=== PATIENT | male | born 1985 | race Caucasian/White ===

== ENCOUNTER 2017-12-06 20:38 | Emergency (ER) | payer MEDICAID ==
[~2017-12-06] VITALS: Ht 180.3 cm; Wt 81.8 kg
[2017-12-06] MEDS ORDERED: ondansetron 4mg rapidly disintigrating tab PO ONE (21:50)
[2017-12-06] MEDS ORDERED: diphenhydrAMINE 50 mg/ml inj IV ONE (21:55)
[2017-12-06] MEDS ORDERED: metoclopramide 5 mg/ml inj IV ONE (21:55)
[2017-12-06] MEDS ORDERED: normal saline 1000ML IV soln IVB ONE ×2 (21:55)
[2017-12-06] MEDS ORDERED: glycopyrrolate 0.2mg/ml inj IV ONE (21:55)
[2017-12-06 22:33] VITALS: BP 112/59
[2017-12-06 22:33] LABS: BASOPHILS % (AUTO) 0 % (0-1); EOSINOPHILS % (AUTO) 0 % (0-6); HEMOGLOBIN 16.5 g/dl (14.0-17.9); LYMPHOCYTES # (AUTO) 0.5 X10'3 (1.1-4.8); LYMPHOCYTES % (AUTO) 3.3 % (21-51); MEAN CORPUSCULAR HEMOGLOBIN 30.4 PG (27.0-31.0); MEAN CORPUSCULAR HGB CONC 34.3 % (33.0-36.5); MEAN CORPUSCULAR VOLUME 88.7 FL (78-98); MEAN PLATELET VOLUME 8.2 FL (7.4-10.4); MONOCYTES # (AUTO) 0.5 X10'3 (0-0.9); MONOCYTES % (AUTO) 3.1 % (2-12); NEUTROPHILS % (AUTO) 93.6 % (42-75); PLATELET COUNT 342 X10'3 (140-440); RED BLOOD COUNT 5.41 X10'6 (4.70-6.10)
[2017-12-06 22:50] LABS: ALANINE AMINOTRANSFERASE 31 U/L (12-78); ALBUMIN 4.7 G/DL (3.4-5.0); ALBUMIN/GLOBULIN RATIO 1.3 (1.1-1.5); ALKALINE PHOSPHATASE 77 IU/L (46-116); ANION GAP 15 (8-16); ASPARTATE AMINO TRANSFERASE 20 U/L (10-37); BILIRUBIN,TOTAL 0.8 MG/DL (0.1-1.0); BLOOD UREA NITROGEN 19 MG/DL (7-18); BUN/CREATININE RATIO 14.2 (5.4-32.0); CALCIUM 9.3 MG/DL (8.5-10.1); CHLORIDE 101 MMOL/L (99-107); CREATININE 1.34 MG/DL (0.60-1.10); GLUCOSE 161 MG/DL (70-104); LIPASE 51 U/L (73-393); SODIUM 139 MMOL/L (135-145); TOTAL CARBON DIOXIDE 23.1 MMOL/L (24-32); TOTAL PROTEIN 8.3 G/DL (6.4-8.2); eGFR 63 ML/MIN
[2017-12-06 23:09] LABS: POTASSIUM 4.2 MMOL/L (3.5-5.1)
[2017-12-06] MEDS ORDERED: CefTRIAXone 2gm/D5W 50ml 50 ML IV ONE (23:45)
[2017-12-06] MEDS ORDERED: DICY10CA88 PO (23:55)
[2017-12-06] MEDS ORDERED: SULF1TAB49 PO (23:55)
[2017-12-06] MEDS ORDERED: ONDA4TAB12 PO (23:55)
== END 2017-12-07 00:49 | disposition home or self-care (01) ==
LOC: ER 20:39
DX: R11.2 Nausea with vomiting, unspecified (principal); R19.7 Diarrhea, unspecified; Z88.8 Allergy status to other drugs, medicaments and biological substances; Z79.899 Other long term (current) drug therapy
CPT/HCPCS: 36415; 80053; 83690; 85025; 96361; 96365; 96375; 99284; J0696; J1200; J2765; J3490; J7030

== ENCOUNTER 2018-03-15 15:00 | Emergency (ER) | payer MEDICAID ==
[~2018-03-15] VITALS: Ht 180.3 cm; Wt 81.2 kg
[~2018-03-15 15:00] MED LIST: ONDA4TAB12 PO
[2018-03-15] MEDS ORDERED: LORazepam 2 mg/ml vial IV ONE (15:15)
[2018-03-15] MEDS ORDERED: ondansetron/PF 4mg/2ml inj IV ONE (15:15)
[2018-03-15] MEDS ORDERED: normal saline 1000ML IV soln IVB ONE (15:15)
[2018-03-15 15:27] LABS: BASOPHILS % (AUTO) 0 % (0-1); EOSINOPHILS % (AUTO) 0 % (0-6); HEMATOCRIT 48.3 % (42.0-52.0); HEMOGLOBIN 16.2 g/dl (14.0-17.9); LYMPHOCYTES # (AUTO) 1.2 X10'3 (1.1-4.8); LYMPHOCYTES % (AUTO) 7.7 % (21-51); MEAN CORPUSCULAR HEMOGLOBIN 29.8 PG (27.0-31.0); MEAN CORPUSCULAR HGB CONC 33.6 % (33.0-36.5); MEAN CORPUSCULAR VOLUME 88.8 FL (78-98); MEAN PLATELET VOLUME 7.7 FL (7.4-10.4); MONOCYTES # (AUTO) 0.3 X10'3 (0-0.9); MONOCYTES % (AUTO) 2.3 % (2-12); NEUTROPHILS # (AUTO) 13.8 X10'3 (1.8-7.7); PLATELET COUNT 376 X10'3 (140-440); RED BLOOD COUNT 5.44 X10'6 (4.70-6.10); RED CELL DISTRIBUTION WIDTH 14.2 % (11.5-14.5); WHITE BLOOD COUNT 15.3 X10'3 (4.5-11.0)
[2018-03-15 15:36] LABS: PROTHROMBIN TIME 10.5 SECONDS (9.0-12.0)
[2018-03-15 15:41] LABS: ALANINE AMINOTRANSFERASE 32 U/L (12-78); ALBUMIN/GLOBULIN RATIO 1.5 (1.1-1.5); ALKALINE PHOSPHATASE 86 IU/L (46-116); AMYLASE 64 U/L (25-115); ANION GAP 14 (8-16); ASPARTATE AMINO TRANSFERASE 14 U/L (10-37); BILIRUBIN,TOTAL 0.6 MG/DL (0.1-1.0); BLOOD UREA NITROGEN 11 MG/DL (7-18); BUN/CREATININE RATIO 7.6 (5.4-32.0); CHLORIDE 105 MMOL/L (99-107); CREATININE 1.45 MG/DL (0.60-1.10); GLUCOSE 180 MG/DL (70-104); LIPASE 107 U/L (73-393); POTASSIUM 3.9 MMOL/L (3.5-5.1); SODIUM 142 MMOL/L (135-145); TOTAL CARBON DIOXIDE 23.3 MMOL/L (24-32); TOTAL PROTEIN 8.4 G/DL (6.4-8.2); eGFR 57 ML/MIN
[2018-03-15 15:42] LABS: ETHANOL < 0.010 GM/DL (0.0-0.010)
[2018-03-15] MEDS ORDERED: haloperidol lactate 5mg/ml inj IM ONE (15:55)
[2018-03-15 16:42] LABS: CLARITY,URINE CLEAR (Clear); COLOR,URINE YELLOW (Yellow); GLUCOSE, URINE 100 mg/dl (Neg); KETONES,URINE 15 mg/dl (Neg); LEUKOCYTE ESTERASE ,URINE NEGATIVE (Neg); NITRITES, URINE NEGATIVE (Neg); OCCULT BLOOD,URINE NEGATIVE (Neg); PH,URINE 8.5 (4.8-8.0); PROTEIN,URINE NEGATIVE (Neg); UROBILINOGEN,URINE 0.2 E.U/dL (0.2-1.0)
[2018-03-15 16:48] LABS: URINE AMPHETAMINE SCREEN NEGATIVE (Neg); URINE BARBITUATE SCREEN NEGATIVE (Neg); URINE BENZODIAZEPINES SCREEN NEGATIVE (Neg); URINE CANNABINOID SCREEN POSITIVE (Neg); URINE COCAINE SCREEN NEGATIVE (Neg); URINE METHADONE SCREEN NEGATIVE (Neg); URINE OPIATE SCREEN NEGATIVE (Neg); URINE PHENCYCLIDINE SCREEN NEGATIVE (Neg)
[2018-03-15 16:53] LABS: UA COLLECTION TYPE CLN CATCH MIDSTREAM
[2018-03-15 18:18] VITALS: BP 146/75
[2018-03-16] MEDS ORDERED: ONDA4TAB9 SL (19:26)
[2018-03-16] MEDS ORDERED: POTA20TA19 PO (19:26)
[2018-03-17] MEDS ORDERED: PHE12.5T PO (14:06)
== END 2018-03-15 18:20 | disposition home or self-care (01) ==
LOC: ER 15:00
DX: G43.A0 Cyclical vomiting, in migraine, not intractable (principal); F12.10 Cannabis abuse, uncomplicated; R19.7 Diarrhea, unspecified; R10.33 Periumbilical pain; Z79.899 Other long term (current) drug therapy; Z88.1 Allergy status to other antibiotic agents
CPT/HCPCS: 36415; 74176; 80053; 80305; 80320; 81003; 82150; 83690; 85025; 85610; 96361; 96372; 96374; 96375; 99285; J1630; J2060; J2405; J7030

== ENCOUNTER 2018-03-16 08:54 | Emergency (ER) | payer MEDICAID ==
[~2018-03-16] VITALS: Ht 180.3 cm; Wt 79.5 kg
[2018-03-16] MEDS ORDERED: haloperidol lactate 5mg/ml inj IM ONE (09:15)
[2018-03-16] MEDS ORDERED: ondansetron/PF 4mg/2ml inj IV ONE (09:15)
[2018-03-16] MEDS ORDERED: normal saline 1000ML IV soln IVB ONE (09:15)
[2018-03-16] MEDS ORDERED: diphenhydrAMINE 50 mg/ml inj IV ONE (09:15)
[2018-03-16 09:36] LABS: BASOPHILS # (AUTO) 0.1 X10'3 (0-0.2); BASOPHILS % (AUTO) 0.5 % (0-1); EOSINOPHILS % (AUTO) 0.1 % (0-6); HEMATOCRIT 43.9 % (42.0-52.0); HEMOGLOBIN 14.7 g/dl (14.0-17.9); LYMPHOCYTES # (AUTO) 2.4 X10'3 (1.1-4.8); LYMPHOCYTES % (AUTO) 15.1 % (21-51); MEAN CORPUSCULAR HEMOGLOBIN 29.9 PG (27.0-31.0); MEAN CORPUSCULAR HGB CONC 33.6 % (33.0-36.5); MEAN PLATELET VOLUME 8.2 FL (7.4-10.4); MONOCYTES # (AUTO) 1.1 X10'3 (0-0.9); NEUTROPHILS # (AUTO) 12.4 X10'3 (1.8-7.7); NEUTROPHILS % (AUTO) 77.3 % (42-75); PLATELET COUNT 334 X10'3 (140-440); RED BLOOD COUNT 4.93 X10'6 (4.70-6.10); RED CELL DISTRIBUTION WIDTH 13.3 % (11.5-14.5)
[2018-03-16 09:56] LABS: ALANINE AMINOTRANSFERASE 28 U/L (12-78); ALBUMIN 4.3 G/DL (3.4-5.0); ALBUMIN/GLOBULIN RATIO 1.3 (1.1-1.5); ALKALINE PHOSPHATASE 73 IU/L (46-116); ANION GAP 15 (8-16); ASPARTATE AMINO TRANSFERASE 27 U/L (10-37); BILIRUBIN,TOTAL 0.8 MG/DL (0.1-1.0); BLOOD UREA NITROGEN 12 MG/DL (7-18); BUN/CREATININE RATIO 11.5 (5.4-32.0); CALCIUM 8.3 MG/DL (8.5-10.1); CHLORIDE 100 MMOL/L (99-107); CREATININE 1.04 MG/DL (0.60-1.10); GLUCOSE 125 MG/DL (70-104); LIPASE 280 U/L (73-393); SODIUM 139 MMOL/L (135-145); TOTAL CARBON DIOXIDE 24.3 MMOL/L (24-32); TOTAL PROTEIN 7.5 G/DL (6.4-8.2); eGFR 84 ML/MIN
[2018-03-16 09:59] LABS: POTASSIUM 2.9 MMOL/L (3.5-5.1)
[2018-03-16] MEDS ORDERED: potassium Cl 10 mEq/100mL bag IV ONE (10:05)
[2018-03-16] MEDS ORDERED: potassium 10mEq/100ml NS w/LIDOcaine (10mg/bag) IV ONE (10:15)
[2018-03-16 10:18] LABS: CLARITY,URINE CLEAR (Clear); COLOR,URINE YELLOW (Yellow); GLUCOSE, URINE NEGATIVE (Neg); KETONES,URINE NEGATIVE (Neg); LEUKOCYTE ESTERASE ,URINE NEGATIVE (Neg); NITRITES, URINE NEGATIVE (Neg); OCCULT BLOOD,URINE NEGATIVE (Neg); PROTEIN,URINE TRACE mg/dl (Neg)
[2018-03-16 10:21] LABS: UA COLLECTION TYPE CLN CATCH MIDSTREAM
[2018-03-16 10:22] LABS: AMORPHOUS PHOSPHATES 1+; BACTERIA,URINE NONE SEEN /HPF (Neg); MUCUS STRANDS NONE SEEN /LPF (Neg); RBC,URINE 0-2 /HPF (0-2); SQUAMOUS EPITHELIAL CELL,UR NONE SEEN /LPF (FEW); WBC,URINE 0-4 /HPF (0-4)
[2018-03-16 11:43] VITALS: BP 126/74
[2018-03-16] MEDS ORDERED: POTA20TA19 PO (19:26)
[2018-03-16] MEDS ORDERED: ONDA4TAB9 SL (19:26)
[2018-03-17] MEDS ORDERED: PHE12.5T PO (14:06)
== END 2018-03-16 11:46 | disposition home or self-care (01) ==
LOC: ER 08:54
DX: R11.2 Nausea with vomiting, unspecified (principal); E87.6 Hypokalemia; Z88.1 Allergy status to other antibiotic agents; Z79.899 Other long term (current) drug therapy
CPT/HCPCS: 36415; 80053; 81001; 83690; 85025; 93005; 96361; 96365; 96372; 96375; 99285; J1200; J1630; J2405; J3480; J7030

== ENCOUNTER 2020-12-23 10:04 | Emergency (ER) | payer MEDICAID ==
[~2020-12-23] VITALS: Ht 180.3 cm; Wt 87.7 kg
[~2020-12-23 10:04] MED LIST changes: +PROM12.512 PO
[2020-12-23 10:55] LABS: BASOPHILS # (AUTO) 0.1 X10'3 (0-0.2); BASOPHILS % (AUTO) 0.5 % (0-1); EOSINOPHILS % (AUTO) 0 % (0-6); HEMATOCRIT 47.5 % (42.0-52.0); HEMOGLOBIN 16.1 g/dl (14.0-17.9); LYMPHOCYTES # (AUTO) 1.7 X10'3 (1.1-4.8); LYMPHOCYTES % (AUTO) 10.9 % (21-51); MEAN CORPUSCULAR HEMOGLOBIN 30.9 PG (27.0-31.0); MEAN CORPUSCULAR HGB CONC 33.9 g/dL (33.0-36.5); MEAN CORPUSCULAR VOLUME 91.2 FL (78-98); MEAN PLATELET VOLUME 7.8 FL (7.4-10.4); MONOCYTES # (AUTO) 1.4 X10'3 (0-0.9); MONOCYTES % (AUTO) 9.2 % (2-12); NEUTROPHILS # (AUTO) 12.3 X10'3 (1.8-7.7); NEUTROPHILS % (AUTO) 79.4 % (42-75); PLATELET COUNT 383 X10'3 (140-440); RED BLOOD COUNT 5.21 X10'6 (4.70-6.10); RED CELL DISTRIBUTION WIDTH 13.6 % (11.5-14.5); WHITE BLOOD COUNT 15.5 X10'3 (4.5-11.0)
[2020-12-23 11:10] LABS: ALANINE AMINOTRANSFERASE 53 U/L (12-78); ALBUMIN 4.7 G/DL (3.4-5.0); ALBUMIN/GLOBULIN RATIO 1.3 (1.1-1.5); ALKALINE PHOSPHATASE 86 IU/L (46-116); ANION GAP 15 (8-16); ASPARTATE AMINO TRANSFERASE 20 U/L (10-37); BILIRUBIN,TOTAL 0.8 MG/DL (0.1-1.0); BLOOD UREA NITROGEN 18 MG/DL (7-18); CALCIUM 8.9 MG/DL (8.5-10.1); CHLORIDE 102 MMOL/L (99-107); CREATININE 1.38 MG/DL (0.60-1.10); GLUCOSE 147 MG/DL (70-104); LIPASE 60 U/L (73-393); POTASSIUM 3.1 MMOL/L (3.5-5.1); SODIUM 143 MMOL/L (135-145); TOTAL CARBON DIOXIDE 26.5 MMOL/L (24-32); TOTAL PROTEIN 8.3 G/DL (6.4-8.2); eGFR 59 ML/MIN
[2020-12-23] MEDS ORDERED: mag hydrox/Alum hydrox/simeth 30ml oral suspension PO ONE (12:35)
[2020-12-23] MEDS ORDERED: proCHLORperazine 10 MG/2 ml inj IV ONE (12:35)
[2020-12-23] MEDS ORDERED: LIDOcaine Viscous 15ml cup TP ONE (12:35)
[2020-12-23] MEDS ORDERED: normal saline 1000ML IV soln IVB ONE (12:35)
[2020-12-23] MEDS ORDERED: ondansetron/PF 4mg/2ml inj IV ONE (12:35)
[2020-12-23] MEDS ORDERED: diphenhydrAMINE 50 mg/ml inj IV ONE (12:35)
[2020-12-23 12:36] LABS: CLARITY,URINE CLOUDY (Clear); COLOR,URINE YELLOW (Yellow); GLUCOSE, URINE NEGATIVE (Neg); KETONES,URINE NEGATIVE (Neg); LEUKOCYTE ESTERASE ,URINE NEGATIVE (Neg); NITRITES, URINE NEGATIVE (Neg); OCCULT BLOOD,URINE TRACE-INTACT (Neg); PH,URINE 6.5 (4.8-8.0); PROTEIN,URINE 100 mg/dl (Neg); UA COLLECTION TYPE CLN CATCH MIDSTREAM; UROBILINOGEN,URINE 0.2 E.U/dL (0.2-1.0)
[2020-12-23 12:42] LABS: BACTERIA,URINE 1+ /HPF (Neg); MUCUS STRANDS MANY /LPF (Neg); RBC,URINE 0-2 /HPF (0-2); SQUAMOUS EPITHELIAL CELL,UR FEW /LPF (FEW); WBC,URINE 0-4 /HPF (0-4)
[2020-12-23 14:30] VITALS: BP 150/83
[2020-12-23] MEDS ORDERED: DICY10CA88 PO (16:01)
[2020-12-23] MEDS ORDERED: ONDA4TAB6 PO (16:01)
[2020-12-24] MEDS ORDERED: PROM25TA14 PO (13:27)
== END 2020-12-23 16:39 | disposition home or self-care (01) ==
LOC: ER 10:04
DX: R11.2 Nausea with vomiting, unspecified (principal); Z20.822 Contact with and (suspected) exposure to COVID-19; R10.84 Generalized abdominal pain; F17.200 Nicotine dependence, unspecified, uncomplicated; Z88.1 Allergy status to other antibiotic agents; Z79.899 Other long term (current) drug therapy
CPT/HCPCS: 36415; 80053; 81001; 83690; 85025; 87635; 96361; 96374; 96375; 99284; C9803; J1200; J2405; J7030

== ENCOUNTER 2020-12-24 11:23 | Emergency (ER) | payer MEDICAID ==
[~2020-12-24] VITALS: Ht 180.3 cm; Wt 86.1 kg
[~2020-12-24 11:23] MED LIST changes: +DICY10CA88 PO; +ONDA4TAB6 PO
[2020-12-24 12:38] LABS: BASOPHILS # (AUTO) 0.1 X10'3 (0-0.2); BASOPHILS % (AUTO) 0.5 % (0-1); EOSINOPHILS % (AUTO) 0.1 % (0-6); HEMATOCRIT 47.2 % (42.0-52.0); LYMPHOCYTES # (AUTO) 2.6 X10'3 (1.1-4.8); MEAN CORPUSCULAR HEMOGLOBIN 30.5 PG (27.0-31.0); MEAN CORPUSCULAR HGB CONC 33.8 g/dL (33.0-36.5); MEAN CORPUSCULAR VOLUME 90.2 FL (78-98); MEAN PLATELET VOLUME 7.6 FL (7.4-10.4); MONOCYTES # (AUTO) 1.2 X10'3 (0-0.9); MONOCYTES % (AUTO) 8.4 % (2-12); NEUTROPHILS # (AUTO) 9.8 X10'3 (1.8-7.7); PLATELET COUNT 391 X10'3 (140-440); RED BLOOD COUNT 5.23 X10'6 (4.70-6.10); RED CELL DISTRIBUTION WIDTH 13.4 % (11.5-14.5); WHITE BLOOD COUNT 13.7 X10'3 (4.5-11.0)
[2020-12-24] MEDS ORDERED: normal saline 1000ML IV soln IVB ONE (12:55)
[2020-12-24] MEDS ORDERED: ondansetron/PF 4mg/2ml inj IV ONE (12:55)
[2020-12-24] MEDS ORDERED: haloperidol lactate 5mg/ml inj IM ONE (12:55)
[2020-12-24 12:56] LABS: ALANINE AMINOTRANSFERASE 44 U/L (12-78); ALBUMIN 4.5 G/DL (3.4-5.0); ALBUMIN/GLOBULIN RATIO 1.4 (1.1-1.5); ALKALINE PHOSPHATASE 83 IU/L (46-116); ANION GAP 14 (8-16); ASPARTATE AMINO TRANSFERASE 20 U/L (10-37); BILIRUBIN,TOTAL 1.1 MG/DL (0.1-1.0); BLOOD UREA NITROGEN 14 MG/DL (7-18); BUN/CREATININE RATIO 11.9 (5.4-32.0); CALCIUM 8.7 MG/DL (8.5-10.1); CHLORIDE 98 MMOL/L (99-107); CREATININE 1.18 MG/DL (0.60-1.10); GLUCOSE 138 MG/DL (70-104); LIPASE 309 U/L (73-393); SODIUM 139 MMOL/L (135-145); TOTAL CARBON DIOXIDE 27.4 MMOL/L (24-32); TOTAL PROTEIN 7.8 G/DL (6.4-8.2); eGFR 71 ML/MIN
[2020-12-24 13:04] LABS: POTASSIUM 2.9 MMOL/L (3.5-5.1)
[2020-12-24] MEDS ORDERED: PROM25TA14 PO (13:27)
[2020-12-24] MEDS ORDERED: potassium Cl 10 mEq/100mL bag IV ONE (13:35)
[2020-12-24] MEDS ORDERED: potassium Cl 20 mEq SR tablet PO ONE (13:35)
[2020-12-24] MEDS ORDERED: mag hydrox/Alum hydrox/simeth 30ml oral suspension PO ONE (14:35)
[2020-12-24 15:01] LABS: CLARITY,URINE CLOUDY (Clear); COLOR,URINE YELLOW (Yellow); GLUCOSE, URINE NEGATIVE (Neg); KETONES,URINE TRACE mg/dl (Neg); LEUKOCYTE ESTERASE ,URINE NEGATIVE (Neg); NITRITES, URINE NEGATIVE (Neg); OCCULT BLOOD,URINE NEGATIVE (Neg); PH,URINE 8.5 (4.8-8.0); PROTEIN,URINE NEGATIVE (Neg); UROBILINOGEN,URINE 0.2 E.U/dL (0.2-1.0)
--- NOTE | 2020-12-24 15:10 | NUR ---
report given by Torrey JONES, assumed care. pt resting in bed, denies needs. K infusing, awaiting completion and then can d/c.
[2020-12-24 15:12] LABS: UA COLLECTION TYPE URINAL
[2020-12-24 15:14] LABS: AMORPHOUS PHOSPHATES 2+; RBC,URINE NONE SEEN /HPF (0-2); WBC,URINE NONE SEEN /HPF (0-4)
[2020-12-24 15:15] LABS: BACTERIA,URINE NONE SEEN /HPF (Neg); MUCUS STRANDS NONE SEEN /LPF (Neg); SQUAMOUS EPITHELIAL CELL,UR FEW /LPF (FEW)
[2020-12-24 16:00] VITALS: BP 125/82
== END 2020-12-24 16:02 | disposition home or self-care (01) ==
LOC: ER 11:24
DX: R11.15 Cyclical vomiting syndrome unrelated to migraine (principal); E87.6 Hypokalemia; R10.13 Epigastric pain; Z88.1 Allergy status to other antibiotic agents; Z79.899 Other long term (current) drug therapy
CPT/HCPCS: 36415; 80053; 81001; 83690; 85025; 96361; 96372; 96374; 96375; 99285; J1630; J2405; J3480; J7030; 99284

== ENCOUNTER 2021-04-12 11:27 | Inpatient (IN) | payer MEDICAID ==
[~2021-04-12] VITALS: Ht 180.3 cm; Wt 84.1 kg
[~2021-04-12 11:27] MED LIST changes: +PROM25TA14 PO
[2021-04-12] MEDS ORDERED: ondansetron 4mg rapidly disintigrating tab PO ONE (12:15)
[2021-04-12] MEDS ORDERED: normal saline 1000ML IV soln IVB ONE (13:30)
[2021-04-12 14:08] LABS: BASOPHILS % (AUTO) 0.2 % (0-1); EOSINOPHILS % (AUTO) 0 % (0-6); HEMATOCRIT 54.3 % (42.0-52.0); LYMPHOCYTES # (AUTO) 3.3 X10'3 (1.1-4.8); LYMPHOCYTES % (AUTO) 14.2 % (21-51); MEAN CORPUSCULAR HEMOGLOBIN 30.2 PG (27.0-31.0); MEAN CORPUSCULAR HGB CONC 33.8 g/dL (33.0-36.5); MEAN CORPUSCULAR VOLUME 89.4 FL (78-98); MEAN PLATELET VOLUME 8.1 FL (7.4-10.4); MONOCYTES # (AUTO) 2.6 X10'3 (0-0.9); MONOCYTES % (AUTO) 11.1 % (2-12); NEUTROPHILS # (AUTO) 17.6 X10'3 (1.8-7.7); NEUTROPHILS % (AUTO) 74.5 % (42-75); PLATELET COUNT 457 X10'3 (140-440); RED BLOOD COUNT 6.07 X10'6 (4.70-6.10); RED CELL DISTRIBUTION WIDTH 13.8 % (11.5-14.5); WHITE BLOOD COUNT 23.6 X10'3 (4.5-11.0)
[2021-04-12 14:10] LABS: ALANINE AMINOTRANSFERASE 40 U/L (12-78); ALBUMIN 5.5 G/DL (3.4-5.0); ALBUMIN/GLOBULIN RATIO 1.4 (1.1-1.5); ALKALINE PHOSPHATASE 115 IU/L (46-116); ANION GAP 16 (8-16); ASPARTATE AMINO TRANSFERASE 18 U/L (10-37); BILIRUBIN,TOTAL 2.1 MG/DL (0.1-1.0); BLOOD UREA NITROGEN 36 MG/DL (7-18); BUN/CREATININE RATIO 15.4 (5.4-32.0); CALCIUM 9.2 MG/DL (8.5-10.1); CHLORIDE 89 MMOL/L (99-107); CREATININE 2.34 MG/DL (0.60-1.10); GLUCOSE 160 MG/DL (70-104); SODIUM 138 MMOL/L (135-145); TOTAL CARBON DIOXIDE 33.3 MMOL/L (24-32); TOTAL PROTEIN 9.3 G/DL (6.4-8.2); eGFR 32 ML/MIN
[2021-04-12 14:12] LABS: POTASSIUM 2.2 MMOL/L (3.5-5.1)
[2021-04-12 14:13] LABS: HEMOGLOBIN 18.4 g/dl (14.0-17.9)
[2021-04-12] MEDS ORDERED: potassium Cl 20 mEq SR tablet PO STA (14:20)
[2021-04-12] MEDS ORDERED: potassium Cl 10 mEq/100mL bag IV ONE (14:20)
[2021-04-12] MEDS ORDERED: proCHLORperazine 10 MG/2 ml inj IV ONE (14:20)
[2021-04-12] MEDS ORDERED: magnesium 2GM in 50ml NS 50 ML IV ONE (14:25)
[2021-04-12 14:51] LABS: MAGNESIUM 2.3 MG/DL (1.5-2.4)
[2021-04-12 15:30] LABS: LIPASE 73 U/L (73-393)
[2021-04-12] MEDS ORDERED: acetaminophen 325mg tablet PO PRN (15:30)
[2021-04-12] MEDS ORDERED: potassium Cl 40MEQ/1/2NS 520ml 520 ML IV PRN (15:30)
[2021-04-12] MEDS ORDERED: magnesium hydroxide 30ml (MOM) UD suspension PO PRN (15:30)
[2021-04-12] MEDS ORDERED: potassium Cl 20 mEq SR tablet PO PRN ×2 (15:30)
[2021-04-12] MEDS ORDERED: mag hydrox/Alum hydrox/simeth 30ml oral suspension PO PRN (15:30)
[2021-04-12] MEDS: potassium Cl 20mEq in NS 1,000 ML IV SCH ×2 (16:39→22:28)
[2021-04-12] MEDS: heparin, porcine 5000 units/ml vial SQ SCH (16:41)
[2021-04-12 17:00] LABS: TOTAL CELLS COUNTED 100
[2021-04-12 17:01] LABS: PLATELET ESTIMATE INCREASED
[2021-04-12] MEDS: docusate sod 100mg capsule PO SCH (20:00)
[2021-04-12] MEDS: K and/or MAG REPLACEMENT MC SCH (20:00)
[2021-04-12] MEDS: ondansetron/PF 4mg/2ml inj IV PRN (21:15)
[2021-04-13] MEDS: potassium Cl 20mEq in NS 1,000 ML IV SCH ×5 (01:30→21:30)
[2021-04-13] MEDS: ondansetron/PF 4mg/2ml inj IV PRN ×4 (02:47→20:25)
[2021-04-13] MEDS: heparin, porcine 5000 units/ml vial SQ SCH ×3 (02:47→20:26)
[2021-04-13] MEDS ORDERED: proCHLORperazine 10 MG/2 ml inj IV ONE ×2 (05:10→12:50)
[2021-04-13 05:25] LABS: BASOPHILS # (AUTO) 0.1 X10'3 (0-0.2); BASOPHILS % (AUTO) 0.5 % (0-1); EOSINOPHILS % (AUTO) 0 % (0-6); HEMATOCRIT 43.9 % (42.0-52.0); HEMOGLOBIN 14.7 g/dl (14.0-17.9); LYMPHOCYTES # (AUTO) 2.3 X10'3 (1.1-4.8); LYMPHOCYTES % (AUTO) 14.9 % (21-51); MEAN CORPUSCULAR HEMOGLOBIN 30.5 PG (27.0-31.0); MEAN CORPUSCULAR HGB CONC 33.6 g/dL (33.0-36.5); MEAN CORPUSCULAR VOLUME 90.8 FL (78-98); MEAN PLATELET VOLUME 8.2 FL (7.4-10.4); MONOCYTES # (AUTO) 1.6 X10'3 (0-0.9); MONOCYTES % (AUTO) 10.5 % (2-12); NEUTROPHILS # (AUTO) 11.7 X10'3 (1.8-7.7); NEUTROPHILS % (AUTO) 74.1 % (42-75); PLATELET COUNT 314 X10'3 (140-440); RED BLOOD COUNT 4.83 X10'6 (4.70-6.10); RED CELL DISTRIBUTION WIDTH 13.5 % (11.5-14.5); WHITE BLOOD COUNT 15.7 X10'3 (4.5-11.0)
[2021-04-13 05:37] LABS: ALANINE AMINOTRANSFERASE 29 U/L (12-78); ALBUMIN 3.8 G/DL (3.4-5.0); ALBUMIN/GLOBULIN RATIO 1.4 (1.1-1.5); ALKALINE PHOSPHATASE 83 IU/L (46-116); ANION GAP 6 (8-16); ASPARTATE AMINO TRANSFERASE 15 U/L (10-37); BILIRUBIN,TOTAL 1.2 MG/DL (0.1-1.0); BLOOD UREA NITROGEN 23 MG/DL (7-18); BUN/CREATININE RATIO 19.3 (5.4-32.0); CALCIUM 7.5 MG/DL (8.5-10.1); CHLORIDE 104 MMOL/L (99-107); CREATININE 1.19 MG/DL (0.60-1.10); GLUCOSE 114 MG/DL (70-104); POTASSIUM 3.1 MMOL/L (3.5-5.1); SODIUM 141 MMOL/L (135-145); TOTAL CARBON DIOXIDE 31.1 MMOL/L (24-32); TOTAL PROTEIN 6.6 G/DL (6.4-8.2); eGFR 70 ML/MIN
--- NOTE | 2021-04-13 07:05 | NUR ---
PT'S CALLED FOR UPDATE. INFORMED THAT PT IS SLEEPING CURRENTLY AND IN NO DISTRESS.
[2021-04-13] MEDS: K and/or MAG REPLACEMENT MC SCH ×2 (07:32→20:00)
[2021-04-13] MEDS: potassium Cl 40MEQ/1/2NS 520ml 520 ML IV PRN (08:02)
[2021-04-13] MEDS ORDERED: NO HOME MEDS (09:04)
[2021-04-13] MEDS: pantoprazole 40mg Tablet.DR PO SCH (12:40)
--- NOTE | 2021-04-13 12:50 | NUR ---
PT NAUSEATES AND WAS GIVEN 8MG ZOFRAN AT 0806. DR FLORES CALLED, NEW ORDER FOR COMPIZINE 10MG IV RECEIVED AND ORDERED.
[2021-04-13] MEDS: docusate sod 100mg capsule PO SCH ×2 (12:55→20:00)
[2021-04-13 13:11] LABS: ANION GAP 11 (8-16); BLOOD UREA NITROGEN 19 MG/DL (7-18); BUN/CREATININE RATIO 16.5 (5.4-32.0); CALCIUM 7.8 MG/DL (8.5-10.1); CHLORIDE 103 MMOL/L (99-107); CREATININE 1.15 MG/DL (0.60-1.10); GLUCOSE 120 MG/DL (70-104); POTASSIUM 3.9 MMOL/L (3.5-5.1); SODIUM 140 MMOL/L (135-145); eGFR 73 ML/MIN
--- NOTE | 2021-04-13 13:54 | NUR ---
PT SLEEPING, VSS, NO S/S OF DISTRESS
--- NOTE | 2021-04-13 19:21 | NUR ---
Note luís in EDM - 04/13/21 at 1923 by JOSE ASSUMED CARE OF PT. HE STATES NAUSEA AND VOMITING PERSISTENT THROUGH DAY DESPITE ANY MEDICATION. PAGED DR. DALTON FOR Q6 COMPAZINE
[2021-04-14] MEDS: pantoprazole 40mg Tablet.DR PO SCH ×2 (01:47→08:43)
[2021-04-14] MEDS: ondansetron/PF 4mg/2ml inj IV PRN (01:47)
[2021-04-14] MEDS: potassium Cl 20mEq in NS 1,000 ML IV SCH (02:30)
--- NOTE | 2021-04-14 03:11 | NUR ---
Patient in room ED 17. I have received report from ER and had the opportunity to ask questions and assume patient care.
--- NOTE | 2021-04-14 03:30 | NUR ---
received pt from ED[place] [facility] [place] MRSA culture collected, BLL, CL within reach, first set of vitals collected, patient is resting comfortably in bed.
[2021-04-14 04:00] VITALS: BP 142/83
--- NOTE | 2021-04-14 05:36 | NUR ---
PAGER ID: [phone] MESSAGE: Gonzalez Spangler 36M admit 04/14 for intractable n/v Has zofran Q6 prn, was given 3hrs ago, not effective. Pt given a one time compazine 16 hrs ago. Can we have another one time dose? Thank you Ariana [phone] Dr Hernandez ordered one time Compazine 10mg IV now
[2021-04-14] MEDS: proCHLORperazine 10 MG/2 ml inj IV ONE ×2 (05:45→05:50)
[2021-04-14 06:00] VITALS: BP 130/83
[2021-04-14 06:12] LABS: BASOPHILS % (AUTO) 0.1 % (0-1); EOSINOPHILS % (AUTO) 0.1 % (0-6); HEMATOCRIT 40.5 % (42.0-52.0); HEMOGLOBIN 13.6 g/dl (14.0-17.9); LYMPHOCYTES # (AUTO) 2.2 X10'3 (1.1-4.8); LYMPHOCYTES % (AUTO) 16.4 % (21-51); MEAN CORPUSCULAR HEMOGLOBIN 30.1 PG (27.0-31.0); MEAN CORPUSCULAR HGB CONC 33.5 g/dL (33.0-36.5); MEAN PLATELET VOLUME 8.3 FL (7.4-10.4); MONOCYTES # (AUTO) 1.6 X10'3 (0-0.9); MONOCYTES % (AUTO) 11.8 % (2-12); NEUTROPHILS # (AUTO) 9.5 X10'3 (1.8-7.7); NEUTROPHILS % (AUTO) 71.6 % (42-75); PLATELET COUNT 313 X10'3 (140-440); RED CELL DISTRIBUTION WIDTH 13.6 % (11.5-14.5); WHITE BLOOD COUNT 13.3 X10'3 (4.5-11.0)
[2021-04-14 06:23] LABS: ALANINE AMINOTRANSFERASE 26 U/L (12-78); ALBUMIN 3.8 G/DL (3.4-5.0); ALBUMIN/GLOBULIN RATIO 1.4 (1.1-1.5); ALKALINE PHOSPHATASE 76 IU/L (46-116); ANION GAP 8 (8-16); ASPARTATE AMINO TRANSFERASE 16 U/L (10-37); BLOOD UREA NITROGEN 15 MG/DL (7-18); BUN/CREATININE RATIO 14.6 (5.4-32.0); CALCIUM 7.8 MG/DL (8.5-10.1); CHLORIDE 106 MMOL/L (99-107); CREATININE 1.03 MG/DL (0.60-1.10); GLUCOSE 100 MG/DL (70-104); POTASSIUM 3.4 MMOL/L (3.5-5.1); SODIUM 141 MMOL/L (135-145); TOTAL CARBON DIOXIDE 26.8 MMOL/L (24-32); TOTAL PROTEIN 6.6 G/DL (6.4-8.2); eGFR 83 ML/MIN
--- NOTE | 2021-04-14 06:57 | NUR ---
Problems reprioritized. Patient report given, questions answered & plan of care reviewed with ROBERT Hilario.
--- NOTE | 2021-04-14 07:02 | NUR ---
[place] documentation: I have reviewed and agree with all interventions, assessments performed and documented by ROBERT Baca.
--- NOTE | 2021-04-14 07:03 | NUR ---
[place] Medication Administration: For this medication-pass time frame, all medication were reviewed, dispensed, administered and documented per hospital policy by ROBERT Baca.
[2021-04-14] MEDS: K and/or MAG REPLACEMENT MC SCH (08:00)
[2021-04-14] MEDS: docusate sod 100mg capsule PO SCH (08:00)
[2021-04-14] MEDS: heparin, porcine 5000 units/ml vial SQ SCH ×2 (08:44)
[2021-04-14] MEDS ORDERED: proCHLORperazine 10 MG/2 ml inj IV PRN (09:00)
[2021-04-14] MEDS: potassium Cl 40MEQ/1/2NS 520ml 520 ML IV PRN (09:21)
[2021-04-14] MEDS ORDERED: OMEP40CA21 PO (09:50)
[2021-04-14] MEDS ORDERED: ONDA8TAB13 PO (09:50)
[2021-04-14 11:00] VITALS: BP 133/77
--- NOTE | 2021-04-14 15:15 | NUR ---
Pt has been pleasant throughout shift. He is able to make his needs be known. He repositions himself. All alarms are on and audible.
--- NOTE | 2021-04-14 15:32 | NUR ---
Pt stable for D/C Pt is stable for D/C - PIV was removed from Left hand - pt tolerated well. All D/C ppwk was reviewed and pt had not additional questions at this time. Stressed the importance of following up with PCP within 1 week - he verbalized understanding. All new [place] sent to [facility] [place] [facility] [place] All personal belongings were sent with patient. Pt was walked out by nursing staff to who was waiting in private vehicle.
== END 2021-04-14 15:30 | disposition home or self-care (01) | DRG 241 ==
LOC: ER 11:28 → ED HOLD 15:37 → EDBEDREQ 19:38 → ED HOLD 04-13 22:27 → EDBEDREQDT 04-14 02:42 → EDBEDREQTM 04-14 02:42 → PCU 3S 04-14 03:25
PROVIDERS: ADMIT Internal Medicine; ATTEND Family Medicine
DX: K29.70 Gastritis, unspecified, without bleeding (principal); N17.0 Acute kidney failure with tubular necrosis; E86.0 Dehydration; D72.829 Elevated white blood cell count, unspecified; E87.6 Hypokalemia; Z20.822 Contact with and (suspected) exposure to COVID-19; Z88.8 Allergy status to other drugs, medicaments and biological substances
CPT/HCPCS: 36415; 80048; 80053; 83690; 83735; 84132; 84145; 85007; 85025; 87081; 87635; 99285; G0378; J0780; J1644; J2405; J3475; J3480; J7030

== ENCOUNTER 2021-09-20 10:17 | Emergency (ER) | payer MEDICAID ==
[~2021-09-20] VITALS: Ht 180.3 cm; Wt 185.0 kg
[~2021-09-20 10:17] MED LIST changes: -DICY10CA88 PO; -ONDA4TAB12 PO; -ONDA4TAB6 PO; +ONDA8TAB13 PO; -PROM12.512 PO; -PROM25TA14 PO
[2021-09-20 10:38] VITALS: BP 167/76
[2021-09-20] MEDS ORDERED: normal saline 1000ML IV soln IV ONE (10:40)
[2021-09-20 10:52] LABS: BASOPHILS # (AUTO) 0.1 X10'3 (0-0.2); BASOPHILS % (AUTO) 0.5 % (0-1); EOSINOPHILS % (AUTO) 0 % (0-6); HEMOGLOBIN 17.7 g/dl (14.0-17.9); LYMPHOCYTES # (AUTO) 3.2 X10'3 (1.1-4.8); MEAN CORPUSCULAR HEMOGLOBIN 29.8 PG (27.0-31.0); MEAN CORPUSCULAR VOLUME 87.6 FL (78-98); MEAN PLATELET VOLUME 7.9 FL (7.4-10.4); MONOCYTES # (AUTO) 2.1 X10'3 (0-0.9); MONOCYTES % (AUTO) 9.4 % (2-12); NEUTROPHILS # (AUTO) 17.4 X10'3 (1.8-7.7); NEUTROPHILS % (AUTO) 76.1 % (42-75); PLATELET COUNT 471 X10'3 (140-440); RED BLOOD COUNT 5.94 X10'6 (4.70-6.10); WHITE BLOOD COUNT 22.8 X10'3 (4.5-11.0)
[2021-09-20] MEDS ORDERED: metoclopramide 5 mg/ml inj IV ONE (10:55)
[2021-09-20] MEDS ORDERED: LORazepam 2 mg/ml vial IV ONE (10:55)
[2021-09-20 11:20] LABS: ALANINE AMINOTRANSFERASE 30 U/L (12-78); ALBUMIN 5.1 G/DL (3.4-5.0); ALBUMIN/GLOBULIN RATIO 1.3 (1.1-1.5); ANION GAP 14 (8-16); ASPARTATE AMINO TRANSFERASE 18 U/L (10-37); BILIRUBIN,TOTAL 1.4 MG/DL (0.1-1.0); BLOOD UREA NITROGEN 35 MG/DL (7-18); BUN/CREATININE RATIO 17.9 (5.4-32.0); CALCIUM 9.5 MG/DL (8.5-10.1); CHLORIDE 89 MMOL/L (99-107); CREATININE 1.95 MG/DL (0.60-1.10); GLUCOSE 166 MG/DL (70-104); LIPASE 75 U/L (73-393); MAGNESIUM 2.8 MG/DL (1.5-2.4); POTASSIUM 3.3 MMOL/L (3.5-5.1); SODIUM 134 MMOL/L (135-145); TOTAL CARBON DIOXIDE 31.5 MMOL/L (24-32); eGFR 40 ML/MIN
[2021-09-20] MEDS ORDERED: potassium Cl 20 mEq SR tablet PO ONE (11:55)
[2021-09-20] MEDS ORDERED: potassium Cl 10 mEq/100mL bag IV ONE (11:55)
[2021-09-20 12:09] LABS: CREATINE KINASE 130 U/L (39-308)
[2021-09-20] MEDS ORDERED: ONDA4TAB12 PO (12:47)
[2021-09-20 13:20] LABS: CLARITY,URINE SLIGHTLY CLOUDY (Clear); COLOR,URINE YELLOW (Yellow); GLUCOSE, URINE NEGATIVE (Neg); KETONES,URINE 15 mg/dl (Neg); LEUKOCYTE ESTERASE ,URINE NEGATIVE (Neg); NITRITES, URINE NEGATIVE (Neg); OCCULT BLOOD,URINE TRACE-INTACT (Neg); PH,URINE 8.5 (4.8-8.0); PROTEIN,URINE 30 mg/dl (Neg); UROBILINOGEN,URINE 0.2 E.U/dL (0.2-1.0)
[2021-09-20 13:30] LABS: UA COLLECTION TYPE CLN CATCH MIDSTREAM
[2021-09-20 13:33] LABS: BACTERIA,URINE NONE SEEN /HPF (Neg); HYALINE CASTS 0-3 /LPF (NEGATIVE); MUCUS STRANDS FEW /LPF (Neg); RBC,URINE 0-2 /HPF (0-2); SQUAMOUS EPITHELIAL CELL,UR FEW /LPF (FEW); URINE AMPHETAMINE SCREEN NEGATIVE (Neg); URINE BARBITUATE SCREEN NEGATIVE (Neg); URINE BENZODIAZEPINES SCREEN POSITIVE (Neg); URINE CANNABINOID SCREEN POSITIVE (Neg); URINE COCAINE SCREEN NEGATIVE (Neg); URINE METHADONE SCREEN NEGATIVE (Neg); URINE OPIATE SCREEN NEGATIVE (Neg); URINE PHENCYCLIDINE SCREEN NEGATIVE (Neg); WBC,URINE 0-4 /HPF (0-4)
[2021-09-20 15:08] LABS: TOTAL CELLS COUNTED 100
[2021-09-20 15:09] LABS: LARGE PLATELETS FEW; TOXIC GRANULATION 1+; TOXIC VACUOLATION FEW
[2021-09-20 15:10] LABS: PLATELET ESTIMATE INCREASED
[2021-09-20 15:13] LABS: SMUDGE CELLS 1+
[2021-09-21] MEDS ORDERED: PROC25SU31 RC (12:49)
[2021-09-21] MEDS ORDERED: POTA-207 PO (12:49)
== END 2021-09-20 13:39 | disposition home or self-care (01) ==
LOC: ER 10:17
DX: R11.15 Cyclical vomiting syndrome unrelated to migraine (principal); E86.0 Dehydration; E87.6 Hypokalemia; F12.10 Cannabis abuse, uncomplicated; Z88.1 Allergy status to other antibiotic agents; Z20.822 Contact with and (suspected) exposure to COVID-19
CPT/HCPCS: 36415; 80053; 80305; 81001; 82550; 83690; 83735; 85007; 85025; 87502; 87503; 87635; 93005; 96374; 96375; 99284; C9803; J2060; J2765; J3480; J7030; 96361

== ENCOUNTER 2021-09-21 10:28 | Emergency (ER) | payer MEDICAID ==
[~2021-09-21] VITALS: Ht 180.3 cm; Wt 84.1 kg
[~2021-09-21 10:28] MED LIST changes: +ONDA4TAB12 PO
[2021-09-21] MEDS ORDERED: diphenhydrAMINE 50 mg/ml inj IV ONE (10:50)
[2021-09-21] MEDS ORDERED: proCHLORperazine 10 MG/2 ml inj IV ONE (10:50)
[2021-09-21] MEDS ORDERED: normal saline 1000ML IV soln IVB ONE (10:50)
[2021-09-21] MEDS ORDERED: ondansetron/PF 4mg/2ml inj IV ONE (10:50)
[2021-09-21] MEDS ORDERED: metoclopramide 5 mg/ml inj IV ONE (10:50)
[2021-09-21 11:29] LABS: BASOPHILS # (AUTO) 0.1 X10'3 (0-0.2); BASOPHILS % (AUTO) 0.5 % (0-1); EOSINOPHILS % (AUTO) 0.1 % (0-6); HEMATOCRIT 46.5 % (42.0-52.0); HEMOGLOBIN 15.9 g/dl (14.0-17.9); LYMPHOCYTES # (AUTO) 3.7 X10'3 (1.1-4.8); LYMPHOCYTES % (AUTO) 20.1 % (21-51); MEAN CORPUSCULAR HGB CONC 34.2 g/dL (33.0-36.5); MEAN CORPUSCULAR VOLUME 87.8 FL (78-98); MEAN PLATELET VOLUME 7.9 FL (7.4-10.4); MONOCYTES # (AUTO) 2.1 X10'3 (0-0.9); MONOCYTES % (AUTO) 11.6 % (2-12); NEUTROPHILS # (AUTO) 12.4 X10'3 (1.8-7.7); NEUTROPHILS % (AUTO) 67.7 % (42-75); PLATELET COUNT 417 X10'3 (140-440); RED BLOOD COUNT 5.29 X10'6 (4.70-6.10); RED CELL DISTRIBUTION WIDTH 13.9 % (11.5-14.5); WHITE BLOOD COUNT 18.2 X10'3 (4.5-11.0)
[2021-09-21 11:58] LABS: ALANINE AMINOTRANSFERASE 26 U/L (12-78); ALBUMIN 4.6 G/DL (3.4-5.0); ALBUMIN/GLOBULIN RATIO 1.6 (1.1-1.5); AMYLASE 52 U/L (25-115); ANION GAP 15 (8-16); ASPARTATE AMINO TRANSFERASE 14 U/L (10-37); BILIRUBIN,TOTAL 1.6 MG/DL (0.1-1.0); BLOOD UREA NITROGEN 17 MG/DL (7-18); BUN/CREATININE RATIO 13.2 (5.4-32.0); CHLORIDE 96 MMOL/L (99-107); CREATININE 1.29 MG/DL (0.60-1.10); GLUCOSE 128 MG/DL (70-104); SODIUM 138 MMOL/L (135-145); TOTAL CARBON DIOXIDE 27.1 MMOL/L (24-32); TOTAL PROTEIN 7.4 G/DL (6.4-8.2); eGFR 64 ML/MIN
[2021-09-21 12:00] LABS: POTASSIUM 2.8 MMOL/L (3.5-5.1)
[2021-09-21] MEDS ORDERED: POTASSIUM BICARB 20meq eff tab 20 MEQ TABLET.EFF PO ONE (12:00)
[2021-09-21] MEDS ORDERED: LORazepam 2 mg/ml vial IV ONE (12:05)
[2021-09-21] MEDS ORDERED: haloperidol lactate 5mg/ml inj IM ONE (12:05)
[2021-09-21 12:35] LABS: TOTAL CELLS COUNTED 100
[2021-09-21 12:37] LABS: PLATELET ESTIMATE NORMAL
[2021-09-21] MEDS ORDERED: POTA-207 PO (12:49)
[2021-09-21] MEDS ORDERED: PROC25SU31 RC (12:49)
[2021-09-21] MEDS ORDERED: POTASSIUM BICARBONATE/CIT AC 10 MEQ TABLET.EFF PO ONE (13:00)
[2021-09-21 13:17] VITALS: BP 134/90
== END 2021-09-21 13:21 | disposition home or self-care (01) ==
LOC: ER 10:29
DX: R11.15 Cyclical vomiting syndrome unrelated to migraine (principal); E87.6 Hypokalemia; R11.2 Nausea with vomiting, unspecified; Z98.890 Other specified postprocedural states; Z88.1 Allergy status to other antibiotic agents; Z79.899 Other long term (current) drug therapy
CPT/HCPCS: 80053; 82150; 84145; 85007; 85025; 96361; 96372; 96374; 96375; 99284; J0780; J1200; J1630; J2060; J2405; J2765; J7030

== ENCOUNTER 2022-04-18 18:37 | Emergency (ER) | payer MEDICAID ==
[~2022-04-18] VITALS: Ht 180.3 cm; Wt 75.0 kg
[2022-04-18 19:49] LABS: BASOPHILS # (AUTO) 0.1 X10'3 (0-0.2); BASOPHILS % (AUTO) 0.5 % (0-1); EOSINOPHILS % (AUTO) 0.1 % (0-6); HEMATOCRIT 54.7 % (42.0-52.0); LYMPHOCYTES # (AUTO) 2.9 X10'3 (1.1-4.8); LYMPHOCYTES % (AUTO) 14.1 % (21-51); MEAN CORPUSCULAR HEMOGLOBIN 29.7 PG (27.0-31.0); MEAN CORPUSCULAR HGB CONC 33.6 g/dL (33.0-36.5); MEAN CORPUSCULAR VOLUME 88.6 FL (78-98); MEAN PLATELET VOLUME 8.2 FL (7.4-10.4); MONOCYTES # (AUTO) 2.1 X10'3 (0-0.9); MONOCYTES % (AUTO) 10.2 % (2-12); NEUTROPHILS # (AUTO) 15.4 X10'3 (1.8-7.7); NEUTROPHILS % (AUTO) 75.1 % (42-75); PLATELET COUNT 474 X10'3 (140-440); RED BLOOD COUNT 6.17 X10'6 (4.70-6.10); RED CELL DISTRIBUTION WIDTH 14.3 % (11.5-14.5); WHITE BLOOD COUNT 20.6 X10'3 (4.5-11.0)
[2022-04-18 20:02] LABS: ALANINE AMINOTRANSFERASE 23 U/L (12-78); ALBUMIN 5.6 G/DL (3.4-5.0); ALBUMIN/GLOBULIN RATIO 1.6 (1.1-1.5); ALKALINE PHOSPHATASE 106 IU/L (46-116); ANION GAP 17 (8-16); ASPARTATE AMINO TRANSFERASE 15 U/L (10-37); BILIRUBIN,TOTAL 1.8 MG/DL (0.1-1.0); BLOOD UREA NITROGEN 33 MG/DL (7-18); BUN/CREATININE RATIO 16.9 (5.4-32.0); CALCIUM 9.8 MG/DL (8.5-10.1); CHLORIDE 91 MMOL/L (99-107); CREATININE 1.95 MG/DL (0.60-1.10); GLUCOSE 141 MG/DL (70-104); LIPASE 79 U/L (73-393); SODIUM 138 MMOL/L (135-145); TOTAL CARBON DIOXIDE 29.6 MMOL/L (24-32); TOTAL PROTEIN 9.2 G/DL (6.4-8.2); eGFR 39 ML/MIN
[2022-04-18 20:04] LABS: HEMOGLOBIN 18.4 g/dl (14.0-17.9)
[2022-04-18 20:16] LABS: TOTAL CELLS COUNTED 100
[2022-04-18 20:17] LABS: PLATELET ESTIMATE NORMAL; STOMATOCYTES RN
[2022-04-18] MEDS ORDERED: ondansetron/PF 4mg/2ml inj IV ONE (22:50)
[2022-04-18] MEDS ORDERED: magnesium 2GM in 50ml NS 50 ML IV ONE (23:20)
[2022-04-18] MEDS ORDERED: proCHLORperazine 10 MG/2 ml inj IV ONE (23:20)
[2022-04-18] MEDS ORDERED: potassium Cl 20 mEq SR tablet PO ONE (23:20)
[2022-04-18] MEDS ORDERED: normal saline 1000ML IV soln IVB ONE (23:20)
[2022-04-19] MEDS ORDERED: normal saline 1000ML IV soln IVB ONE (00:15)
[2022-04-19] MEDS ORDERED: haloperidol lactate 5mg/ml inj IM ONE (00:35)
[2022-04-19 00:43] LABS: MAGNESIUM 1.9 MG/DL (1.5-2.4)
[2022-04-19 00:44] LABS: CLARITY,URINE CLEAR (Clear); GLUCOSE, URINE NEGATIVE (Neg); KETONES,URINE 40 mg/dl (Neg); LEUKOCYTE ESTERASE ,URINE NEGATIVE (Neg); NITRITES, URINE NEGATIVE (Neg); OCCULT BLOOD,URINE TRACE-INTACT (Neg); PH,URINE 7.5 (4.8-8.0); PROTEIN,URINE 30 mg/dl (Neg); UROBILINOGEN,URINE 0.2 E.U/dL (0.2-1.0)
[2022-04-19 00:45] LABS: COLOR,URINE AMBER (Yellow); UA COLLECTION TYPE NON-SPECIFIED
[2022-04-19 00:51] LABS: BACTERIA,URINE FEW /HPF (Neg); FINE GRANULAR CAST 0-3 /LPF (NEGATIVE); HYALINE CASTS >30 /LPF (NEGATIVE); MUCUS STRANDS MANY /LPF (Neg); RBC,URINE 0-2 /HPF (0-2); SQUAMOUS EPITHELIAL CELL,UR FEW /LPF (FEW); URINE AMPHETAMINE SCREEN NEGATIVE (Neg); URINE BARBITUATE SCREEN NEGATIVE (Neg); URINE BENZODIAZEPINES SCREEN NEGATIVE (Neg); URINE CANNABINOID SCREEN POSITIVE (Neg); URINE COCAINE SCREEN NEGATIVE (Neg); URINE METHADONE SCREEN NEGATIVE (Neg); URINE OPIATE SCREEN NEGATIVE (Neg); URINE PHENCYCLIDINE SCREEN NEGATIVE (Neg); WBC,URINE 0-4 /HPF (0-4)
[2022-04-19 03:40] VITALS: BP 124/71
== END 2022-04-19 04:00 | disposition home or self-care (01) ==
LOC: ER 18:38
DX: R11.15 Cyclical vomiting syndrome unrelated to migraine (principal); E87.6 Hypokalemia; E86.0 Dehydration; N18.9 Chronic kidney disease, unspecified; F12.188 Cannabis abuse with other cannabis-induced disorder; Z98.890 Other specified postprocedural states; Z88.1 Allergy status to other antibiotic agents; Z79.899 Other long term (current) drug therapy
CPT/HCPCS: 36415; 80053; 80305; 81001; 83605; 83690; 83735; 84145; 85007; 85025; 87040; 96365; 96366; 96372; 96375; 99284; J0780; J1630; J2405; J3475; J7030; A4615

== ENCOUNTER 2022-07-17 09:34 | Inpatient (IN) | payer MEDICAID ==
[~2022-07-17] VITALS: Ht 180.3 cm; Wt 80.0 kg
[2022-07-17] MEDS ORDERED: ondansetron/PF 4mg/2ml inj IV ONE (13:20)
[2022-07-17] MEDS ORDERED: famotidine/PF 10 mg/ml inj IV ONE (13:20)
[2022-07-17] MEDS ORDERED: haloperidol lactate 5mg/ml inj IVH ONE (13:20)
[2022-07-17] MEDS ORDERED: proCHLORperazine 10 MG/2 ml inj IV ONE (13:20)
[2022-07-17] MEDS ORDERED: normal saline 1000ML IV soln IVB ONE ×2 (13:20→16:10)
[2022-07-17 13:36] LABS: BASOPHILS % (AUTO) 0.2 % (0-1); EOSINOPHILS % (AUTO) 0 % (0-6); HEMATOCRIT 53.9 % (42.0-52.0); LYMPHOCYTES # (AUTO) 3.3 X10'3 (1.1-4.8); LYMPHOCYTES % (AUTO) 13.9 % (21-51); MEAN CORPUSCULAR HGB CONC 34.2 g/dL (33.0-36.5); MEAN CORPUSCULAR VOLUME 87.6 FL (78-98); MONOCYTES % (AUTO) 16.9 % (2-12); NEUTROPHILS # (AUTO) 16.6 X10'3 (1.8-7.7); PLATELET COUNT 439 X10'3 (140-440); RED BLOOD COUNT 6.16 X10'6 (4.70-6.10)
[2022-07-17 13:43] LABS: HEMOGLOBIN 18.4 g/dl (14.0-17.9)
[2022-07-17 13:52] LABS: ALANINE AMINOTRANSFERASE 23 U/L (12-78); ALBUMIN 5.5 G/DL (3.4-5.0); ALBUMIN/GLOBULIN RATIO 1.5 (1.1-1.5); ALKALINE PHOSPHATASE 89 IU/L (46-116); ASPARTATE AMINO TRANSFERASE 22 U/L (10-37); BILIRUBIN,TOTAL 2.7 MG/DL (0.1-1.0); BLOOD UREA NITROGEN 71 MG/DL (7-18); BUN/CREATININE RATIO 23.2 (5.4-32.0); CALCIUM 9.6 MG/DL (8.5-10.1); CREATININE 3.06 MG/DL (0.60-1.10); GLUCOSE 153 MG/DL (70-104); MAGNESIUM 2.5 MG/DL (1.5-2.4); TOTAL CARBON DIOXIDE 31.2 MMOL/L (24-32); TOTAL PROTEIN 9.2 G/DL (6.4-8.2); eGFR 23 ML/MIN
[2022-07-17 14:00] LABS: PLATELET ESTIMATE NORMAL; TOTAL CELLS COUNTED 100
[2022-07-17 14:11] LABS: ANION GAP 18 (8-16); CHLORIDE 81 MMOL/L (99-107); SODIUM 130 MMOL/L (135-145)
[2022-07-17 14:13] LABS: POTASSIUM 2.6 MMOL/L (3.5-5.1)
[2022-07-17] MEDS ORDERED: potassium Cl 10 mEq/100mL bag IV ONE (14:15)
[2022-07-17 16:29] LABS: BASOPHILS % (AUTO) 0.2 % (0-1); EOSINOPHILS % (AUTO) 0 % (0-6); HEMOGLOBIN 15.9 g/dl (14.0-17.9); LYMPHOCYTES # (AUTO) 2.4 X10'3 (1.1-4.8); LYMPHOCYTES % (AUTO) 12.3 % (21-51); MEAN CORPUSCULAR HEMOGLOBIN 30.5 PG (27.0-31.0); MEAN CORPUSCULAR HGB CONC 33.9 g/dL (33.0-36.5); MEAN PLATELET VOLUME 7.7 FL (7.4-10.4); MONOCYTES # (AUTO) 3.1 X10'3 (0-0.9); MONOCYTES % (AUTO) 15.5 % (2-12); NEUTROPHILS # (AUTO) 14.3 X10'3 (1.8-7.7); PLATELET COUNT 348 X10'3 (140-440); RED BLOOD COUNT 5.22 X10'6 (4.70-6.10); RED CELL DISTRIBUTION WIDTH 13.8 % (11.5-14.5); WHITE BLOOD COUNT 19.9 X10'3 (4.5-11.0)
[2022-07-17 16:54] LABS: ALANINE AMINOTRANSFERASE 17 U/L (12-78); ALBUMIN 4.2 G/DL (3.4-5.0); ALBUMIN/GLOBULIN RATIO 1.6 (1.1-1.5); ALKALINE PHOSPHATASE 67 IU/L (46-116); ANION GAP 10 (8-16); ASPARTATE AMINO TRANSFERASE 21 U/L (10-37); BILIRUBIN,TOTAL 2.1 MG/DL (0.1-1.0); BLOOD UREA NITROGEN 60 MG/DL (7-18); BUN/CREATININE RATIO 25.2 (5.4-32.0); CALCIUM 7.8 MG/DL (8.5-10.1); CHLORIDE 90 MMOL/L (99-107); CREATININE 2.38 MG/DL (0.60-1.10); GLUCOSE 115 MG/DL (70-104); SODIUM 135 MMOL/L (135-145); TOTAL CARBON DIOXIDE 34.7 MMOL/L (24-32); TOTAL PROTEIN 6.9 G/DL (6.4-8.2); eGFR 31 ML/MIN
[2022-07-17 16:55] LABS: POTASSIUM 2.6 MMOL/L (3.5-5.1)
[2022-07-17] MEDS ORDERED: potassium CL 10mEq/100ml bag 100 ML IV ONE (17:00)
[2022-07-17] MEDS ORDERED: magnesium Cl slow-release 64mg tablet PO PRN (18:45)
[2022-07-17] MEDS ORDERED: magnesium 4gm in 100ml NS 100 ML IV PRN (18:45)
[2022-07-17] MEDS ORDERED: magnesium hydroxide 30ml (MOM) UD suspension PO PRN (18:45)
[2022-07-17] MEDS ORDERED: mag hydrox/Alum hydrox/simeth 30ml oral suspension PO PRN (18:45)
[2022-07-17] MEDS ORDERED: potassium Cl 40MEQ/1/2NS 520ml 520 ML IV PRN (18:45)
[2022-07-17] MEDS ORDERED: ondansetron/PF 4mg/2ml inj IV PRN (18:45)
[2022-07-17] MEDS ORDERED: acetaminophen 325mg tablet PO PRN (18:45)
[2022-07-17] MEDS ORDERED: potassium Cl 20 mEq SR tablet PO PRN (18:45)
[2022-07-17] MEDS: docusate sod 100mg capsule PO SCH (20:00)
[2022-07-17] MEDS ORDERED: K and/or MAG REPLACEMENT MC SCH (20:00)
[2022-07-17] MEDS: normal saline 1000ml 1,000 ML IV SCH (20:10)
[2022-07-17 20:25] LABS: URINE AMPHETAMINE SCREEN NEGATIVE (Neg); URINE BARBITUATE SCREEN NEGATIVE (Neg); URINE BENZODIAZEPINES SCREEN NEGATIVE (Neg); URINE CANNABINOID SCREEN POSITIVE (Neg); URINE COCAINE SCREEN NEGATIVE (Neg); URINE METHADONE SCREEN NEGATIVE (Neg); URINE OPIATE SCREEN NEGATIVE (Neg); URINE PHENCYCLIDINE SCREEN NEGATIVE (Neg)
[2022-07-18] MEDS: normal saline 1000ml 1,000 ML IV SCH (01:25)
[2022-07-18] MEDS ORDERED: ringers solution, lactated 1000ml IV soln IV ONE (02:45)
[2022-07-18 04:06] LABS: BASOPHILS % (AUTO) 0.1 % (0-1); EOSINOPHILS % (AUTO) 0.3 % (0-6); HEMATOCRIT 39.5 % (42.0-52.0); HEMOGLOBIN 13.2 g/dl (14.0-17.9); LYMPHOCYTES # (AUTO) 2.6 X10'3 (1.1-4.8); LYMPHOCYTES % (AUTO) 20.1 % (21-51); MEAN CORPUSCULAR HEMOGLOBIN 30.4 PG (27.0-31.0); MEAN CORPUSCULAR HGB CONC 33.3 g/dL (33.0-36.5); MEAN CORPUSCULAR VOLUME 91.3 FL (78-98); MEAN PLATELET VOLUME 7.9 FL (7.4-10.4); MONOCYTES % (AUTO) 15.2 % (2-12); NEUTROPHILS # (AUTO) 8.3 X10'3 (1.8-7.7); NEUTROPHILS % (AUTO) 64.3 % (42-75); PLATELET COUNT 280 X10'3 (140-440); RED BLOOD COUNT 4.32 X10'6 (4.70-6.10); RED CELL DISTRIBUTION WIDTH 13.7 % (11.5-14.5); WHITE BLOOD COUNT 12.9 X10'3 (4.5-11.0)
[2022-07-18 04:09] LABS: ALBUMIN 3.2 G/DL (3.4-5.0); ANION GAP 7 (8-16); BLOOD UREA NITROGEN 36 MG/DL (7-18); BUN/CREATININE RATIO 26.5 (5.4-32.0); CALCIUM 7.6 MG/DL (8.5-10.1); CHLORIDE 98 MMOL/L (99-107); CREATININE 1.36 MG/DL (0.60-1.10); GLUCOSE 110 MG/DL (70-104); MAGNESIUM 2.4 MG/DL (1.5-2.4); SODIUM 136 MMOL/L (135-145); TOTAL CARBON DIOXIDE 30.7 MMOL/L (24-32); eGFR 60 ML/MIN
[2022-07-18 04:15] LABS: POTASSIUM 2.8 MMOL/L (3.5-5.1)
[2022-07-18 07:10] VITALS: BP 141/87
[2022-07-18] MEDS ORDERED: pantoprazole 40MG/NS 100ML BAG 100 ML IV SCH (08:00)
[2022-07-18] MEDS: docusate sod 100mg capsule PO SCH (08:00)
[2022-07-18] MEDS ORDERED: enoxaparin 40mg/0.4ml syringe SUBCUT SCH (08:00)
[2022-07-18 11:00] VITALS: BP 137/76
[2022-07-18] MEDS: potassium Cl 20 mEq SR tablet PO PRN ×2 (12:33→16:16)
[2022-07-18] MEDS ORDERED: NO HOME MEDS (16:11)
[2022-07-18] MEDS ORDERED: OMEP40CA21 PO (16:33)
[2022-07-18 18:00] VITALS: BP 131/77
--- NOTE | 2022-07-18 18:21 | NUR ---
Report to Ann JONES. SALLY orders pending labs. forestry aid technician at bedside now.
[2022-07-18 18:41] LABS: ALBUMIN 3.7 G/DL (3.4-5.0); ANION GAP 7 (8-16); BLOOD UREA NITROGEN 19 MG/DL (7-18); BUN/CREATININE RATIO 20.9 (5.4-32.0); CALCIUM 8.1 MG/DL (8.5-10.1); CHLORIDE 101 MMOL/L (99-107); CREATININE 0.91 MG/DL (0.60-1.10); GLUCOSE 106 MG/DL (70-104); POTASSIUM 3.8 MMOL/L (3.5-5.1); SODIUM 136 MMOL/L (135-145); TOTAL CARBON DIOXIDE 27.8 MMOL/L (24-32); eGFR > 90 ML/MIN
--- NOTE | 2022-07-18 18:55 | NUR ---
DC INSTRUCTIONS GIVEN BY ROBERT PEOPLES.
== END 2022-07-18 18:55 | disposition home or self-care (01) | DRG 469 ==
LOC: ER 09:35 → ED HOLD 18:47 → UNDOADMIN 18:47 → EDBEDREQ 20:34 → SUR 3N 07-18 07:07
PROVIDERS: ADMIT Family Medicine; ATTEND Family Medicine
DX: N17.0 Acute kidney failure with tubular necrosis (principal); K76.0 Fatty (change of) liver, not elsewhere classified; E86.0 Dehydration; F12.10 Cannabis abuse, uncomplicated; E87.6 Hypokalemia; R11.15 Cyclical vomiting syndrome unrelated to migraine; Z88.8 Allergy status to other drugs, medicaments and biological substances; Z79.899 Other long term (current) drug therapy; Z71.51 Drug abuse counseling and surveillance of drug abuser
CPT/HCPCS: 36415; 74176; 76700; 80048; 80053; 80305; 83735; 85007; 85025; 96361; 96365; 96375; 96376; 99285; G0378; J0780; J1630; J2405; J3480; J3490; J7030; J7120